=== PATIENT | female | born 1990 | race Caucasian/White ===

== ENCOUNTER 2016-12-04 17:49 | Emergency (ER) | payer OTHER ==
[~2016-12-04 17:49] MED LIST: ANAPROX DS550 M1 PO; BACLOFEN10 MG PO; BACTRIM DS TABL1 TA1 PO; BIRTH CONTROL PILL PO; C PHEN DM; CIPRO PO; CIPRO250 MG PO; CLEOCIN HCL300 M1 PO; DARVOCET-N 1001 TA1 PO; DIFLUNISAL500 MG PO; FLAGYL PO; FLEXERIL10 MG PO; KEFLEX500 M1 PO; LOMOTIL TABLET1 TAB PO; LORTAB 5/500 TA1 TA1 PO; NAPROXEN PO; NO MEDICATIONS; OMEPRAZOLE20 M1 PO; PERCOCET 5-3251 TAB PO; PHENERGAN PO; PHENERGAN PR; PHENERGAN SUPP25 MG PR; PHENERGAN25 MG PO; PREVACID PO; PRILOSEC PO; PYRIDIUM PO; RONDEC DROPS30 ML PO; VIBRAMYCIN100 M1 PO; VICODIN 5/1 TAB 5/50 PO; VICODIN PO; VOLTAREN75 MG PO; ZANTAC PO; ZANTAC150 MG PO
== END 2016-12-04 18:36 | disposition home or self-care (01) ==
LOC: SED 17:49
DX: H60.01 Abscess of right external ear (principal); Z79.899 Other long term (current) drug therapy
CPT/HCPCS: 99282

== ENCOUNTER 2017-01-01 02:56 | Emergency (ER) | payer OTHER ==
[2017-01-01 02:55] LABS: URINE SOURCE CLEAN CATCH
[2017-01-01 02:57] LABS: URINE APPEARANCE SL CLOUDY; URINE BILIRUBIN NEG (NEG); URINE BLOOD 3+ (NEG); URINE COLOR AMBER; URINE GLUCOSE NEG (NORM); URINE KETONE NEG (NEG); URINE LEUKOCYTE ESTERASE 3+ (NEG); URINE NITRATE POS (NEG); URINE PH 6.5 (5-8); URINE PROTEIN TRACE (NEG); URINE SPECIFIC GRAVITY 1.025 (1.003-1.035)
[2017-01-01 02:58] LABS: MICRO INDICATED? YES
[2017-01-01 03:09] LABS: URINE RBC INNUM /[HPF] (0-2)
[2017-01-01 03:10] LABS: CULTURE INDICATED? YES; URINE AMORPHOUS SEDIMENT AMORP URATES; URINE BACTERIA 2+ (NEG); URINE MUCUS PRESENT; URINE SQUAMOUS EPITHELIAL CELL FEW /[HPF]; URINE WBC 100-200 /[HPF] (0-5)
== END 2017-01-01 04:05 | disposition home or self-care (01) ==
LOC: SED 02:56
PROVIDERS: Emergency Medicine
DX: N30.00 Acute cystitis without hematuria (principal)
CPT/HCPCS: 81003; 84703; 87086; 87088; 87186; 99284